=== PATIENT | male | born 1995 | race Two or more races ===

== ENCOUNTER 2022-12-16 18:10 | Emergency (ER) | payer OTHER, MEDICAID ==
[~2022-12-16] VITALS: Ht 182.9 cm; Wt 77.1 kg
[2022-12-16] MEDS ORDERED: GUAI-671 PO ×2 (18:54→20:12)
[2022-12-16 19:11] VITALS: BP 121/82; TEMP 98.2; O2SAT 99
[2022-12-17] MEDS ORDERED: GUAI-671 PO (13:31)
== END 2022-12-16 19:12 | disposition home or self-care (01) ==
LOC: ER 18:22
DX: S13.4XXA Sprain of ligaments of cervical spine, initial encounter (principal); Z88.8 Allergy status to other drugs, medicaments and biological substances; V89.2XXA Person injured in unspecified motor-vehicle accident, traffic, initial encounter; Y93.89 Activity, other specified; Y92.89 Other specified places as the place of occurrence of the external cause; Y99.8 Other external cause status